=== PATIENT | female | born 2000 | race Hispanic/Latino ===

== ENCOUNTER 2020-03-24 00:34 | Emergency (ER) | payer OTHER ==
[~2020-03-24] VITALS: Ht 157.5 cm; Wt 59.9 kg
--- OUTSIDE RECORDS SUMMARY | 2020-03-24 00:36 | XMS REPORT | Clinical Summary ---
Author Author [facility] Address Unknown Phone Unavailable Care Team Providers Care Site Supervisor Name Role Phone Asked, No Pcp PCP Unavailable Allergies Comments Active Allergy Reactions Severity Noted Date Penicillins GI 04/19/2018 Intolerance Medications No known medications Active Problems Not on file Social History Date Tobacco Use Types Packs/Day Years Used Current Some Day Smoker Cigarettes Smokeless Tobacco: Never Used Drinks/Week oz/Week Comments Alcohol Use No Sex Assigned at Date Recorded Not on file Industry Job Start Date Occupation Not on file Not on file Not on file Travel End Travel History Travel Start No recent travel history available. Last Filed Vital Signs Not on file Plan of Treatment Not on file Results Not on fileafter 03/24/2019 Insurance Type Payer Benefit Subscriber ID Effective Phone Address Plan / Dates Group Exchange EDWARD EXCHANGE EDWARD xxxxxxxxxx [id number] [employer] resent E EXCHANGE [id number] Advance Directives For more information, please contact: [phone] Patient [facility] Explanation Type Date Recorded Advance Directives, 04/19/2018 2:23 AM Living Will and Medical Power of [facility] Nurse
--- OUTSIDE RECORDS SUMMARY | 2020-03-24 00:37 | XMS REPORT | Clinical Summary ---
Author Author [facility] Address Unknown Phone Unavailable Care Team Providers Care Paperboard Box Maker Name Role Phone Pcp, No PCP Unavailable Allergies Comments Active Allergy Reactions Severity Noted Date Penicillins 03/16/2020 Medications End Date Status Medication Sig Dispensed Refills Start Date Active valACYclovir (VALTREX) TAKE 1 TABLET 6 02 1000 MG tablet (1,000 MG 0 TOTAL) BY MOUTH DAILY FOR 5 DAYS USE FOR RECURRENT OUTBREAK. 03/16/2021 Active lidocaine (XYLOCAINE) 2 % Apply 30 mL 4 jelly topically as 0 needed Use quarter size amount to affect external vaginal tissue as necessary. 03/26/2020 Active ibuprofen (ADVIL,MOTRIN) Take 1 tablet 40 tablet 0 800 MG tablet (800 mg 0 total) by mouth every 6 (six) hours as needed for Pain for up to 10 days. 03/29/2019 acetaminophen-codeine Take 1-2 20 tablet 0 (TYLENOL #3) 300-30 mg tablets by 9 per tablet mouth every 6 (six) hours as needed for Pain for up to 10 days. Max Daily Amount: 8 tablets 03/26/2019 ondansetron (ZOFRAN-ODT) Take 1 tablet 20 tablet 0 8 MG disintegrating (8 mg total) 9 tablet by mouth 3 (three) times daily as needed for Nausea for up to 7 days. 09/15/2019 sulfamethoxazole-trimetho Take 1 tablet 14 tablet 0 prim (BACTRIM DS) 800-160 (160 mg of 9 mg per tablet trimethoprim total) by mouth 2 (two) times daily for 7 days. 09/08/2019 fluconazole (DIFLUCAN) Take 1 tablet 1 tablet 1 1 150 MG tablet (150 mg 9 total) by mouth once for 1 dose. 10/05/2019 Discontinued clobetasol (TEMOVATE) Apply 30 g 2 08/12 0.05 % ointment topically 2 9 (two) times daily Apply quarter size amount to affected external vaginal tissue. 09/15/2019 fluconazole (DIFLUCAN) Take 1 tablet 5 tablet 0 1 150 MG tablet (150 mg 9 total) by mouth daily for 5 days. 10/15/2019 valACYclovir (VALTREX) Take 1 tablet 20 tablet 0 1 1000 MG tablet (1,000 mg 9 total) by mouth every 12 (twelve) hours for 10 days. 03/16/2020 Discontinued lidocaine (XYLOCAINE) 2 % Apply 30 mL 4 jelly topically as 9 needed Use quarter size amount to affect external vaginal tissue as necessary. 10/25/2019 valACYclovir (VALTREX) Take 1 tablet 5 tablet 6 1 1000 MG tablet (1,000 mg 9 total) by mouth daily for 5 days Use for recurrent outbreak. Active Problems Not on file Encounters Care Team Description Date Type Specialty Mauricio Carpenter MD Recurrent HSV (herpes simplex virus) (Pr imary Dx); Screening examination for STD (sexually transmitted disease) 03/16/2020 Office Visit Obstetrics and Gyne Mauricio Ramon MD Medication Management 03/16/2020 Telephone Obstetrics and Gyne cology 03/16/2020 Travel Mauricio Carpenter MD Advice Only 03/15/2020 Telephone Obstetrics kinsey GynMauricio Arredondo MD Amenorrhea (Primary Dx) 10/20/2019 Office Visit Mauricio Sen MD 10/06/2019 Orders Only Cecilio and Mauricio Palmer MD Labs Only 10/06/2019 Telephone Mauricio Sen MD Dysuria (Primary Dx); Screening for STD (sexually transmitted disease); History of cocaine use; Yeast infection 10/05/2019 Office Visit Obstetrics and Gyne cology Mauricio Carpenter MD Advice Only 10/05/2019 Telephone Obstetrics and Gyne cology Mauricio Carpenter MD Pelvic pain 09/16/2019 Hospital Encounter Mauricio Carpenter MD 09/10/2019 Orders Only Obstetrics and Gyne cology Mauricio Carpenter MD Lichen simplex chronicus (Primary Dx); Pelvic pain; Acute vaginitis; Screen for STD (sexually transmitted disease) 09/08/2019 Office Visit Obstetrics and Gyne cology Mauricio Carpenter MD referral 09/08/2019 Telephone Obstetrics and Gyne cology after 03/24/2019 Social History Date Tobacco Use Types Packs/Day Years Used Never Smoker Smokeless Tobacco: Never Used Alcohol Use Drinks/Week oz/Week Comments No Alcohol Habits Answer Date Recorded How often do you have a drink containing alcohol? Never 03/19/2019 How many drinks containing alcohol do you have on No t asked a typical day when you are drinking? How often do you have six or more drinks on one Not asked occasion? Sex Assigned at Date Recorded Not on file Industry Job Start Date Occupation Not on file Not on file Not on file Travel End Travel History Travel Start No recent travel history available. Last Filed Vital Signs Time Taken Vital Sign Reading 03/16/2020 8:59 AM CDT Blood Pressure 118/78 03/16/2020 8:59 AM CDT Pulse 67 03/16/2020 8:59 AM CDT Temperature 36.5 C (97.7 F) - Respiratory Rate - - Oxygen Saturation - - Inhaled Oxygen - Concentration 03/16/2020 8:59 AM CDT Weight 60.3 kg (133 lb) 03/16/2020 8:59 AM CDT Height 160 cm (5' 3") 03/16/2020 8:59 AM CDT Body Mass Index 23.56 Plan of Treatment Care Team Description Date Type Specialty Mauricio Carpenter MD [address] [place], [place] [address]y [address] [place] [address] [phone] 04/20/2020 Office Visit Obstetrics and Gyne cology Health Maintenance Due Date Last Done Comments CERVICAL CANCER SCREENING 2019 PAP ONLY (Age 21-65) INFLUENZA VACCINE (Season 07/12/2020 Ended) Procedures Comments Procedure Name Priority Date/Time Associated Diag nosis POCT , URINE Routine 10/20/2019 Amenorrh ea 4:07 PM ICE GRINDER CHLAMYDIA/GC KEENAN, Routine 10/06/2019 CONFIRMATION 4:05 PM [facility] HIV-1 ANTIGEN WITH Routine 10/06/2019 History of cocaine use HIV-1/2 ANTIBODY 2:41 PM [facility]ER Yeast infection MICROSCOPIC EXAMINATION Routine 10/05/2019 4:29 PM [facility] URINE CULTURE, ROUTINE AP Routine 10/05/2019 Dysuria 4:29 PM [facility] URINALYSIS WITH Routine 10/05/2019 MICROSCOPIC IF INDICATED 4:29 PM [facility]ER HSV TYPES 1 & 2, KEENAN Routine 10/05/2019 4:27 PM [facility]ER NUSWAB BV AND MICHELLE\\, AP Routine 10/05/2019 Screen ing for STD KEENAN 4:27 PM [facility]ER (sexually transmitt ed disease) POCT URINALYSIS DIPSTICK Routine 10/05/2019 Dysur ia 2:16 PM [facility]ER US PELVIS WITH ENDOVAG Routine 09/16/2019 WITH DOPPLER 4:29 PM [facility] MICROSCOPIC EXAMINATION Routine 09/08/2019 1:51 PM CDT URINE CULTURE, ROUTINE AP Routine 09/08/2019 Pelvic pain 1:51 PM CDT URINALYSIS WITH Routine 09/08/2019 MICROSCOPIC IF INDICATED 1:51 PM CDT POCT URINALYSIS DIPSTICK Routine 09/08/2019 Pelvi c pain 1:38 PM CDT NUSWAB BV AND MICHELLE\\, AP Routine 09/08/2019 Acute vaginitis KEENAN 1:00 PM CDT Screen for STD (sex ually transmitted disease) after 03/24/2019 Results * POCT , urine (10/20/2019 4:07 PM [facility]) Test Urine, POC Negative Control line present?, Yes POC Background clear?, POC Yes UPT Cassette Lot #, POC [id number] UPT Cassette Expiration 2020-04-10 Date, POC Specimen Narrative Performed At This result has an attachment that is n ot available. * Chlamydia/GC KEENAN, Confirmation (10/06/2019 4:05 PM [facility]ER) Chlamydia trachomatis, Negative Negative [facility] 1 KEENAN Neisseria gonorrhoeae, Negative Negative [facility] 1 KEENAN Specimen Narrative Performed At [facility]formed at: [facility] [address] [place] [address] Corrective Therapist: Hema Ignacio MD, Phone :[phone] Performing Organization Address [facility] Ph one Number [facility] * HIV-1 Antigen with HIV-1/2 Antibody (10/06/2019 2:41 PM [facility]ER) HIV Screen 4th Generation Non Reactive Non Reacti [facility] 1 wRfx Specimen Blood Narrative Performed At Performed at: [facility] [place] [facility] [address] [place] [address] Corrective Therapist: Shaka Taveras MD, Phone: [phone] Performing Organization Address [facility] Ph one Number [facility] * Urinalysis with Microscopic If Indicated (10/05/2019 4:29 PM [facility]) Only the most recent of 2 results within the time period is included. Specific Bath, UA 1.025 1.005 - 1.03 [facility] 1 pH, UA 5.5 5.0 - 7.5 [facility] 1 Color, UA Yellow Yellow [facility] 1 Appearance Cloudy (A) Clear [facility] 1 WBC Esterase Trace (A) Negative [facility] 1 Protein, UA 1+ (A) Negative/T [facility] 1 Glucose, Urine Negative Negative [facility] 1 Ketones, UA Negative Negative [facility] 1 Blood, UA Negative Negative [facility] 1 Bilirubin, UA Negative Negative [facility] 1 Urobilinogen,Semi-Qn 0.2 0.2 - 1.0 mg/dL [facility] 1 Nitrite, UA Negative Negative [facility] 1 Microscopic Examination See below:Comment: Microscopic [facility] was indicated and was performed. Specimen Narrative Performed At Performed at:[address] [place] [address] Corrective Therapist: Shaka Taveras MD, Phone: [phone] Performing Organization Address [facility] one Number [facility] * MICROSCOPIC EXAMINATION (10/05/2019 4:29 PM [facility] GR[facility]ER) Only the most recent of 2 results within the time period is included. WBC 6-10 (A) 0 - 5 /hpf [facility] 1 RBC 3-10 (A) 0 - 2 /hpf [facility] 1 Epithelial Cells (non >10 (A) 0 - 10 /hpf [facility] 1 renal) Mucus Threads Present Not Estab. [facility] 1 Bacteria Few None seen/ [facility] 1 Specimen Narrative Performed At Performed at:[address] [place] [address] [address] Corrective Therapist: Shaka Taveras MD, Phone: [phone] Performing Organization Address [facility] one Number [facility] * URINE CULTURE, ROUTINE ([facility] Only) (10/05/2019 4:29 PM ICE GRINDER) Only the most recent of 2 results within the time period is included. Urine Culture, Routine Final report [facility] 1 Result 1 No growth [facility] 1 Specimen Vaginal Swab Narrative Performed At Performed at: [facility] [address] Corrective Therapist: Shaka Taveras MD, Phone: [phone] Performing Organization Address [facility] one Number [facility] * HSV TYPES 1 & 2, KEENAN (10/05/2019 4:27 PM ICE GRINDER) HSV 1 KEENAN Positive (A) Negative [facility] 1 HSV 2 KEENAN Negative Negative [facility] 1 Specimen Narrative Performed At Performed at:[address] [place] [address] Corrective Therapist: Hema Ignacio MD, Phone :[phone] Performing Organization Address [facility] one Number [facility] * NUSWAB BV AND MICHELLE\\, KEENAN (10/05/2019 4:27 PM ICE GRINDER) Only the most recent of 2 results within the time period is included. Atopobium vaginae Low - 0 Score [facility] BVAB 2 Low - 0 Score [facility] Megasphaera 1 Low - 0 Score [facility] Comment: Calculate total score by adding the 3 individual bacterial vaginosis (BV) marker scores together.Total score is interpreted as follows: Total score 0-1: Indicates the absence of BV. Total score 2: Indeterminate for BV. Additional clinical data should be evaluated to establish a diagnosis. Total score 3-6: Indicates the presence of BV. This test was developed and its performance characteristics determined by [facility].It has not been cleared or approved by the Food and Drug Administration.The FDA has determined that such clearance or approval is not necessary. Michelle albicans, KEENAN Negative Negative [facility] 1 Michelle glabrata, KEENAN Negative Negative [facility] Comment: This test was developed and its performance characteristics determined by [facility].It has not been cleared or approved by the Food and Drug Administration.The FDA has determined that such clearance or approval is not necessary. Specimen Vaginal Swab Narrative Performed At Performed at:[address] [place] [address] Corrective Therapist: Hema Ignacio MD, Phone :[phone] Performing Organization Address [facility] one Number [facility] * POCT urinalysis dipstick (10/05/2019 2:16 PM ICE GRINDER) Only the most recent of 2 results within the time period is included. Glucose Urine, POC Negative Negative Bilirubin Urine, POC Negative Negative Ketones Urine, POC Negative Negative Specific Bath Urine, 1.025 SG Ratio 1.005 SG Ratio , 1.010 SG POC Ratio, 1.015 SG Ratio, 1.020 SG Ratio, 1.025 SG Ratio, 1.030 SG Ratio Blood Urine, POC Trace (A) Negative pH Urine, POC 6.0 pH units 5.0 pH units, 5.5 p H units, 6.0 pH units, 6.5 pH units, 7.0 pH units, 7.5 pH units, 8.0 pH units Protein Urine, POC 30 mg/dl (A) Negative Urobilinogen Urine, POC 0.2 mg/dL 0.2 mg/dL, 1 m g/dL Nitrite Urine, POC Negative Negative Leukocyte Esterase Urine, Small (A) Negative POC Specimen * US pelvis with endovag with doppler (09/16/2019 4:29 PM ICE GRINDER) Specimen Narrative Performed At FINAL REPORT [facility] Pelvic ultrasound with Doppler, 09/16/20 19. History: Pelvic pain. Comparison: None available. Discussion: Transabdominal evaluation o f the pelvis was performed in the transverse and longitudinal planes. Transvaginal sonographic evaluation was also performed for impro rosemary visualization of the adnexa. Color Doppler and spectral wave form analysis was performed of the adnexa bilaterally The uterus is normal in size measuring 5.7 x 2.0 x 2.9 cm. The endometrial stripe is within normal hinton its at 3 mm. The right ovary measures 4.2 x 1.9 x 3. 4 cm and contains a 1.8 cm hemorrhagic follicle. The left ovary me asures 3.8 x 2.0 x 2.6 cm. Normal arterial and venous flow is pres ent bilaterally. There is no evidence of an adnexal mass. There is n o evidence of free fluid. IMPRESSION: Normal pelvic ultrasound. Signed: Onur Webber MD Report Verified Date/Time: 9 16:32:01 Reading Location: [facility] Radiology [facility] Room Procedure Note Interface, External Ris In - 09/16/2019 4:34 PM [facility]ER FINAL REPORT Pelvic ultrasound with Doppler, 09/16/2019. History: Pelvic pain. Comparison: None available. Discussion: Transabdominal evaluation of the pelvis was performed in the transverse and longitudinal planes. Transvaginal sonographic evaluation was also performed for improved visualization of the adnexa. Color Doppler and spectral waveform analysis was performed of the adnexa bilaterally The uterus is normal in size measuring 5.7 x 2.0 x 2.9 cm. The endometrial stripe is within normal limits at 3 mm. The right ovary measures 4.2 x 1.9 x 3.4 cm and contains a 1.8 cm hemorrhagic follicle. The left ovary measures 3.8 x 2.0 x 2.6 cm. Normal arterial and venous flow is present bilaterally. There is no evidence of an adnexal mass. There is no evidence of free fluid. IMPRESSION: Normal pelvic ultrasound. Signed: Onur Webber MD Report Verified Date/Time: 09/16/2019 16:32:01 Reading Location: [facility] Radiology Reading Room Performing Organization Address City/State/Zipcode one Number GE RIS after 03/24/2019 Insurance Payer Benefit Subscriber ID Type Phone Address Plan / Group DENILSON OREILLY xxxxxxxxxxx [place] [phone]
--- OUTSIDE RECORDS SUMMARY | 2020-03-24 00:37 | XMS REPORT ---
Author Author [facility] t Organization [facility] Address [address] [place] [address] Phone Unavailable Care Team Providers Care Erco Machine Operator Name Role Phone Asked, Pcp No PCP Unavailable JOSEFINA VALDOVINOS Attphys Unavailable YULIANA ALEXANDER Attphys Unavailable Payers Payer Name Policy Type Policy Number Effective Date Expiration Date S ource Problems This patient has no known problems. Allergies, Adverse Reactions, Alerts Allergy Name Allergy Type Status Severity Reaction(s) Onset Date Inacti ve Date Treating Clinician Comments Source Cephalosporins DA Active U 2019-08-20 00:00:[facility] Penicillins Propensity to adverse reactions to drug Active GI Intolerance 2018-04-19 00:00:00 [facility] Social History Social Habit Start Date Stop Date Quantity Comments Source History of tobacco use Cigarette Smoker [place] [facility] Sex Assigned At [place] [facility] [facility] Alcohol intake 2018-04-19 00:00:00 2018-04-19 00:00:00 Current non-drinker of alcohol (finding) [place] [facility] Smoking Status Start Date Stop Date Source Current some day smoker 2018-04-19 00:00:00 [place] [facility] Medications This patient has no known medications. Procedures This patient has no known procedures. Results Test Description Test Time Test Comments Results Result Comments Source U/S, PELVIS, WITH ENDOVAG AND DOPPLER 2019-09-16 16:32:00 Re ason for Exam:- >Pelvic pain FINAL REPORT Pel osbaldo ultrasound with Doppler, 09/16/2019. History: Pelvic pain. [...] IMPRESSION: Normal pelvic ultrasound. Signed: Onur Webber Verified Date/Time: 09/16/2019 16:32:01 Reading Location: [facility] [address] Radiology Reading Room REHENSIVE METABOLIC PANEL 2019-08-20 14:53:00 Test Item SODIUM (test code = NA) 139 MMOL/L 137-145 N POTASSIUM (test code = K) 4.4 MMOL/L 3.5-5.1 N CHLORIDE (test code = CL) 104 MMOL/L 98-107 N CARBON DIOXIDE (test code = CO2) 26 MMOL/L 22-30 N ANION GAP (test code = GAP) 13 MMOL/L 14-24 L GLUCOSE (test code = GLU) 71 MG/DL 74-106 L BLOOD UREA NITROGEN (test code = BUN) 14 MG/DL 7-17 N GLOMERULAR FILTRATION RATE (test code = GFR) > 60 Reporting units: ml/min/1.73 m2 (Modified MDRD Formula)Reference Range: > or = 60 ml/min/1.73 m2 CREATININE (test code = CREAT) 0.50 MG/DL 0.52-1.04 L TOTAL PROTEIN (test code = PROT) 9.1 G/DL 6.3-8.2 H ALBUMIN (test code = ALB) 4.9 G/DL 3.5-5.0 N CALCIUM (test code = CA) 9.5 MG/DL 8.4-10.2 N BILIRUBIN TOTAL (test code = BILT) 1.1 MG/DL 0.2-1.3 N SGOT/AST (test code = AST) 50 UNITS/L 14-36 H SGPT/ALT (test code = ALT) < 6 UNITS/L 9-52 L ALKALINE PHOSPHATASE (test code = ALKP) 73 UNITS/L 38-126 N [id number] 14:53:00* Test Item Value Reference Range Interpretation Comments LIPASE (test code = LIP) 94 UNITS/L 23-300 N HCG SERUM [id number] 13:12:00* Test Item Value Reference Range Interpretation Comments HCG SERUM QUAL (test code = HCGQL) NEGATIVE NEGATIVE A URINALYSIS [id number] 13:08:00* Test Item Value Reference Range Interpretation Comments UA COLOR (test code = COLU) YELLOW YELLOW UA APPEARANCE (test code = APPU) very cloudy CLEAR UA GLUCOSE DIPSTICK (test code = DGLUU) NORMAL MG/DL NORMAL UA BILIRUBIN DIPSTICK (test code = BILU) NEGATIVE MG/DL NEGATIVE UA KETONE DIPSTICK (test code = KETU) 5 MG/DL NEGATIVE UA SPECIFIC GRAVITY (test code = SGU) 1.025 1.003-1.030 N UA BLOOD DIPSTICK (test code = DEB) 25 John/mm3 NEGATIVE A UA PH DIPSTICK (test code = AUSTIN) 5.0 5.0-9.0 N UA PROTEIN DIPSTICK (test code = PROU) NEGATIVE MG/DL NEGATIVE UA UROBILINIOGEN DIPSTICK (test code = URO) NORMAL MG/DL NORMAL UA NITRITE DIPSTICK (test code = KAMALA) NEGATIVE NEGATIVE UA LEUKOCYTE ESTERASE DIPSTICK (test code = LEUU) 500 /mm3 NEGA TIVE A UA CULTURE NEEDED? (test code = UACULT) NO, WBC<10 Criteria Culture Chk SOURCE OF URINE: CLEAN CATCHUA [id number] 13:08:00* Test Item Value Reference Range Interpretation Comments UA RBC (test code = RBCU) 0-3 RBC/HPF 0-3 UA WBC (test code = XWBCU) 5-9 WBC/HPF 0-5 A UA EPITHELIAL CELLS (test code = EPIU) MANY EPI/HPF FEW UA BACTERIA (test code = XBACU) FEW NONE SOURCE OF URINE: CLEAN CATCHURINALYSIS [id number] 12:55:00* Test Item Value Reference Range Interpretation Comments UA COLOR (test code = COLU) YELLOW YELLOW UA APPEARANCE (test code = APPU) very cloudy CLEAR UA GLUCOSE DIPSTICK (test code = DGLUU) NORMAL MG/DL NORMAL UA BILIRUBIN DIPSTICK (test code = BILU) NEGATIVE MG/DL NEGATIVE UA KETONE DIPSTICK (test code = KETU) 5 MG/DL NEGATIVE UA SPECIFIC GRAVITY (test code = SGU) 1.025 1.003-1.030 N UA BLOOD DIPSTICK (test code = DEB) 25 John/mm3 NEGATIVE A UA PH DIPSTICK (test code = AUSTIN) 5.0 5.0-9.0 N UA PROTEIN DIPSTICK (test code = PROU) NEGATIVE MG/DL NEGATIVE UA UROBILINIOGEN DIPSTICK (test code = URO) NORMAL MG/DL NORMAL UA NITRITE DIPSTICK (test code = KAMALA) NEGATIVE NEGATIVE UA LEUKOCYTE ESTERASE DIPSTICK (test code = LEUU) 500 /mm3 NEGA TIVE A UA CULTURE NEEDED? (test code = UACULT) Criteria Culture Chk SOURCE OF URINE: CLEAN CATCHUA [id number] 12:55:00* Test Item Value Reference Range Interpretation Comments UA RBC (test code = RBCU) RBC/HPF 0-3 UA WBC (test code = XWBCU) WBC/HPF 0-5 UA EPITHELIAL CELLS (test code = EPIU) EPI/HPF FEW UA BACTERIA (test code = XBACU) NONE SOURCE OF URINE: CLEAN CATCHURINALYSIS [id number] 12:55:00* Test Item Value Reference Range Interpretation Comments UA COLOR (test code = COLU) YELLOW YELLOW UA APPEARANCE (test code = APPU) very cloudy CLEAR UA GLUCOSE DIPSTICK (test code = DGLUU) NORMAL MG/DL NORMAL UA BILIRUBIN DIPSTICK (test code = BILU) NEGATIVE MG/DL NEGATIVE UA KETONE DIPSTICK (test code = KETU) 5 MG/DL NEGATIVE UA SPECIFIC GRAVITY (test code = SGU) 1.025 1.003-1.030 N UA BLOOD DIPSTICK (test code = DEB) 25 John/mm3 NEGATIVE A UA PH DIPSTICK (test code = AUSTIN) 5.0 5.0-9.0 N UA PROTEIN DIPSTICK (test code = PROU) NEGATIVE MG/DL NEGATIVE UA UROBILINIOGEN DIPSTICK (test code = URO) NORMAL MG/DL NORMAL UA NITRITE DIPSTICK (test code = KAMALA) NEGATIVE NEGATIVE UA LEUKOCYTE ESTERASE DIPSTICK (test code = LEUU) 500 /mm3 NEGA TIVE A UA CULTURE NEEDED? (test code = UACULT) Criteria Culture Chk SOURCE OF URINE: CLEAN CATCHUA [id number] 12:55:00* Test Item Value Reference Range Interpretation Comments UA RBC (test code = RBCU) RBC/HPF 0-3 UA WBC (test code = XWBCU) WBC/HPF 0-5 UA EPITHELIAL CELLS (test code = EPIU) EPI/HPF FEW UA BACTERIA (test code = XBACU) NONE SOURCE OF URINE: CLEAN CATCHCBC W/AUTO [id number] 12:50:00* Test Item Value Reference Range Interpretation Comments WHITE BLOOD CELL (test code = WBC) 6.2 K/MM3 3.8-9.8 N RED BLOOD CELL (test code = RBC) 4.71 M/MM3 3.58-4.97 N HEMOGLOBIN (test code = HGB) 14.1 G/DL 11.2-14.9 N HEMATOCRIT (test code = HCT) 43.7 % 33.2-43.5 H MEAN CELL VOLUME (test code = MCV) 93 fL 80.7-99.1 N MEAN CELL HGB (test code = MCH) 29.9 pg 27.0-34.1 N MEAN CELL HGB CONCETRATION (test code = MCHC) 32.3 % 32.2-35. 7 N RED CELL DISTRIBUTION WIDTH (test code = RDW) 11.9 % 12.1-15. 2 L PLATELET COUNT (test code = PLT) 260 K/MM3 129-368 N MEAN PLATELET VOLUME (test code = MPV) 11.5 fl 7.4-10.4 H NEUTROPHIL % (test code = NT%) 44.5 % 43-75 N IMMATURE GRANULOCYTE % (test code = IG%) 0.2 % 0.0-2.0 N LYMPHOCYTE % (test code = LY%) 47.0 % 14-44 H MONOCYTE % (test code = MO%) 6.0 % 4-13 N EOSINOPHIL % (test code = EO%) 1.8 % 0-6 N BASOPHIL % (test code = BA%) 0.5 % 0-2 N NUCLEATED RBC % (test code = NRBC%) 0.0 % 0-1.0 N NEUTROPHIL # (test code = NT#) 2.74 K/mm3 2.0-7.6 N IMMATURE GRANULOCYTE # (test code = IG#) 0.01 x10 3/uL 0-0.03 N LYMPHOCYTE # (test code = LY#) 2.89 K/mm3 1.0-3.8 N MONOCYTE # (test code = MO#) 0.37 K/mm3 0.1-0.8 N EOSINOPHIL # (test code = EO#) 0.11 K/mm3 0.0-0.2 N BASOPHIL # (test code = BA#) 0.03 K/mm3 0.0-0.2 N NUCLEATED RBC # (test code = NRBC#) 0.00 K/mm3 0.0-0.1 N TROPONIN [id number] 20:52:00* Test Item Value Reference Range Interpretation Comments TROPONIN I (BEAKER) (test code = 397) < ng/mL 0.00-0.15 Troponin I (TnI) levels must be interpreted in the context of the presenting sym ptoms and the clinical findings. Elevated TnI levels indicate myocardial damage, but are not specific for ischemic heart disease. Elevated TnI levels are seen in patients with other cardiac conditions (including myocarditis and congestive h eart failure), and slight TnI elevations occur in patients with other conditions , including sepsis, renal failure, acidosis, acute neurological disease, and per sistent tachyarrhythmia.RAPID DRUG SCREEN, [id number] 20:41:00* Test Item Value Reference Range Interpretation Comments BARBITURATE URINE (BEAKER) (test code = 725) Negative Negative BENZODIAZEPINE SCREEN URINE (BEAKER) (test code = 726) Negative Negative COCAINE (METAB.) SCREEN (BEAKER) (test code = 1164) Positive Ne gative A METHADONE SCREEN (BEAKER) (test code = 1436) Negative Negative OPIATE SCREEN URINE (BEAKER) (test code = 734) Negative Negativ e CANNABINOID SCREEN URINE (BEAKER) (test code = 727) Positive Ne gative A AMPH/METHAMPH SCREEN (BEAKER) (test code = 1438) Negative Negat jose PHENCYCLIDINE SCREEN URINE (BEAKER) (test code = 608) Negative Negative DRUG CUTOFF CONC.Cocaine 300 ng/mL Cannabinoid 50 ng/mLBenzodiazepine 200 ng/mLBarbiturate 200 ng/mLPh encyclidine 25 ng/mLOpiate 300 ng/mLMethadone 300 ng/mLAmphetamine/ 1000 ng/mL MethamphetamineThis assay provides an unconfirmed qualitative test result for the clinical management of patients in emergency situations. Chain of custody not maintained. Some rbhd-mkk-wrpxsap me dications, as well as adulterants, may cause inaccurate results. Clinical correl ation should be applied. A more comprehensive drug screen or confirmation of a d etected drug may be performed upon request.CT, [id number] 14:21:00Reason for exam:->upper abd pain, nauseaIs the patient ?->NoWhat is the patient's sedation requirement?->No SedationFINAL REPORT TECHNIQUE: CT of the abdomen and pelvis WITH intravenous contrast and WITHOUT oral contrast. Dose modulation, iterative reconstruction, and/or weight-based adjustment of the mA/kV was utilized to reduce the radiation dose to as low as reasonably achievable. INDICATION: 18-year-old woman with upper abdominal pain and nausea. COMPARISON: None. FINDINGS: LOWER THORAX: Unremarkable. HEPATOBILIARY: No focal hepatic lesions. Gallbladder is unremarkable. No biliary ductal dilatation.SPLEEN: No splenomegaly.PANCREAS: No focal masses or ductal dilatation. ADRENALS: No adrenal nodules.KIDNEYS/URETERS: No hydronephrosis, stones, or solid mass lesions.PELVIC ORGANS/BLADDER: 3.9 x 3.2 x 2.4 cm structure in the right ovary contains calcifications as well as fat. Uterus and left ovary are grossly unremarkable. Bladder is unremarkable. PERITONEUM/ RETROPERITONEUM: Trace free fluid in the pelvis, likely physiologic. No free air .LYMPH NODES: No lymphadenopathy.VESSELS: Unremarkable. GI TRACT: No distention or wall thickening. Normal appendix. BONES AND SOFT TISSUES: Unremarkable. IMPR ESSION:No acute abnormalities in the abdomen or pelvis. 3.9 cm right ovarian nikolay moid. Signed: Laisha Copeland MDReport Verified Date/Time: 03/19/2019 14:21:09 Reading Location: [address] Ultrasound Reading Room ONIN [id number] 13:24:00* Test Item Value Reference Range Interpretation Comments TROPONIN I (BEAKER) (test code = 397) < ng/mL 0.00-0.15 Troponin I (TnI) levels must be interpreted in the context of the presenting sym ptoms and the clinical findings. Elevated TnI levels indicate myocardial damage, but are not specific for ischemic heart disease. Elevated TnI levels are seen in patients with other cardiac conditions (including myocarditis and congestive h eart failure), and slight TnI elevations occur in patients with other conditions , including sepsis, renal failure, acidosis, acute neurological disease, and per sistent tachyarrhythmia.[id number] 13:16:00* Test Item Value Reference Range Interpretation Comments LIPASE (BEAKER) (test code = 749) 20 U/L 6-51 COMPREHENSIVE METABOLIC [id number] 13:15:00* Test Item Value Reference Range Interpretation Comments TOTAL PROTEIN (BEAKER) (test code = 770) 8.0 gm/dL 6.0-8.5 ALBUMIN (BEAKER) (test code = 1145) 4.5 g/dL 3.5-5.0 ALKALINE PHOSPHATASE (BEAKER) (test code = 346) 61 U/L 30-115 BILIRUBIN TOTAL (BEAKER) (test code = 377) 0.7 mg/dL 0.1-1.2 SODIUM (BEAKER) (test code = 381) 137 meq/L 135-148 POTASSIUM (BEAKER) (test code = 379) 3.9 meq/L 3.6-5.5 CHLORIDE (BEAKER) (test code = 382) 105 meq/L 98-106 CO2 (BEAKER) (test code = 355) 21 meq/L 20-29 BLOOD UREA NITROGEN (BEAKER) (test code = 354) 14 mg/dL 10-26 CREATININE (BEAKER) (test code = 358) 0.83 mg/dL 0.50-1.20 GLUCOSE RANDOM (BEAKER) (test code = 652) 79 mg/dL 70-110 CALCIUM (BEAKER) (test code = 697) 9.5 mg/dL 8.5-10.5 AST (SGOT) (BEAKER) (test code = 353) 29 U/L 5-40 ALT (SGPT) (BEAKER) (test code = 347) 18 U/L 5-50 EGFR (BEAKER) (test code = 1092) 88 mL/min/1.73 sq m ESTIMATED GFR IS NOT ACCURATE CREATININE CLEARANCE IN PREDICTING GLOMERULAR FILTRATION RATE. ESTIMATED GFR IS NOT APPLICABLE FOR DIALYSIS PATIENTS. CBC W/PLT COUNT & AUTO [id number] 12:53:00* Test Item Value Reference Range Interpretation Comments WHITE BLOOD CELL COUNT (BEAKER) (test code = 775) 2.9 K/ L 4.0- 10.0 L RED BLOOD CELL COUNT (BEAKER) (test code = 761) 4.84 M/ L 4.00-5 .00 HEMOGLOBIN (BEAKER) (test code = 410) 13.6 GM/DL 12.0-15.5 HEMATOCRIT (BEAKER) (test code = 411) 42.5 % 36.0-46.0 MEAN CORPUSCULAR VOLUME (BEAKER) (test code = 753) 87.8 fL 82. 0-99.0 MEAN CORPUSCULAR HEMOGLOBIN (BEAKER) (test code = 751) 28.1 pg 27.0-33.0 MEAN CORPUSCULAR HEMOGLOBIN CONC (BEAKER) (test code = 752) 32.0 GM/DL 32.0-36.0 RED CELL DISTRIBUTION WIDTH (BEAKER) (test code = 412) 13.0 % 12.0-15.0 PLATELET COUNT (BEAKER) (test code = 756) 198 K/CU MM 150-430 MEAN PLATELET VOLUME (BEAKER) (test code = 754) 9.7 fL 6.0-11 .5 NUCLEATED RED BLOOD CELLS (BEAKER) (test code = 413) 0 /100 WBC 0 -0 NEUTROPHILS RELATIVE PERCENT (BEAKER) (test code = 429) 60 % LYMPHOCYTES RELATIVE PERCENT (BEAKER) (test code = 430) 22 % MONOCYTES RELATIVE PERCENT (BEAKER) (test code = 431) 16 % EOSINOPHILS RELATIVE PERCENT (BEAKER) (test code = 432) 1 % BASOPHILS RELATIVE PERCENT (BEAKER) (test code = 437) 0 % NEUTROPHILS ABSOLUTE COUNT (BEAKER) (test code = 670) 1.75 K/ L 1.80-8.00 L LYMPHOCYTES ABSOLUTE COUNT (BEAKER) (test code = 414) 0.65 K/ L 1.48-4.50 L MONOCYTES ABSOLUTE COUNT (BEAKER) (test code = 415) 0.46 K/ L 0. 00-1.30 EOSINOPHILS ABSOLUTE COUNT (BEAKER) (test code = 416) 0.03 K/ L 0.00-0.50 BASOPHILS ABSOLUTE COUNT (BEAKER) (test code = 417) 0.01 K/ L 0. 00-0.20 IMMATURE GRANULOCYTES-RELATIVE PERCENT (BEAKER) (test code = 2801) 0 % 0-0 RAD, CHEST, 2 [id number] 12:52:00Reason for exam:->chest painReason for exam:->1 dayFINAL REPORT Chest, PA and lateral. History: Chest pain. Comparison: None available. Discussion: The cardiomediastinal silhouette and pulmonary vasculature are within normal limits. The lungs are clear without evidence of consolidation or effusion. There are no acute osseous abnormalities. The soft tissues are unremarkable. IMPRESSION: No acute cardiopulmonary abnormality. Signed: Bryan Bell MDReport Verified Date/Time: 03/19/2019 12:52:28 Reading Location: [address] Radiology Reading Room ALYSIS W/ [id number] 11:00:00* Test Item Value Reference Range Interpretation Comments COLOR (BEAKER) (test code = 470) Yellow CLARITY (BEAKER) (test code = 469) Slightly Cloudy SPECIFIC GRAVITY UA (BEAKER) (test code = 468) 1.010 1.001-1 .035 PH UA (BEAKER) (test code = 467) 6.5 5.0-8.0 PROTEIN UA (BEAKER) (test code = 464) Negative Negative GLUCOSE UA (BEAKER) (test code = 365) Negative Negative KETONES UA (BEAKER) (test code = 371) Negative Negative BILIRUBIN UA (BEAKER) (test code = 462) Negative Negative BLOOD UA (BEAKER) (test code = 461) Negative Negative NITRITE UA (BEAKER) (test code = 465) Negative Negative LEUKOCYTE ESTERASE UA (BEAKER) (test code = 466) Negative Negat jose UROBILINOGEN UA (BEAKER) (test code = 463) 0.2 mg/dL 0.2-1.0 BACTERIA (BEAKER) (test code = 517) Moderate RBC UA-MANUAL (BEAKER) (test code = 1659) <5 /HPF WBC UA-MANUAL (BEAKER) (test code = 1661) <5 /HPF SQUAMOUS EPITHELIAL MANUAL (BEAKER) (test code = 1663) 5-10 /HPF SOURCE(BEAKER) (test code = 2795) SCREEN, [id number] 10:55:00* Test Item Value Reference Range Interpretation Comments TEST URINE (BEAKER) (test code = 583) Negative
[2020-03-24] MEDS ORDERED: LORAZEPAM 0.5 MG TAB ONE (00:56)
--- NOTE | 2020-03-24 00:56 | Emergency Department Note ---
History of Present Illnes History of Present Illness Chief Complaint: General Medicine Complaints History of Present Illness This is a 19 year old female with anxiety attack. . Historian: Patient Arrival Mode: Car Onset (how long ago): hour(s) (1) Location: all over Quality: anxious Radiation: non-radiation Severity: mild Onset quality: sudden Duration (how long): hour(s) Progression: waxing and waning Chronicity: recurrent Relieving factors: none Exacerbating factors: none Associated symptoms: denies other symptoms Treatments prior to arrival: none Past Medical/Family History Physician Review I have reviewed the patient's past medical and family history. Any updates have been documented here. 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 Physical Exam Related Data Triage Vital Signs Vital Signs Date Time Temp Pulse Resp B/P (MAP) Pulse Ox O2 Delivery O2 Flow Rate FiO2 03/24/20 00:37 98.1 78 18 123/60 98 Vital signs reviewed: Yes Physical Exam CONSTITUTIONAL Constitutional: well-developed, well-nourished HENT HENT: normocephalic, atraumatic, oropharynx clear/moist, nose normal HENT - Ear: left ext ear normal, right ext ear normal EYES Eyes: PERRL, conjunctivae normal NECK Neck: ROM normal PULMONARY Pulmonary: effort normal, breath sounds normal CARDIOVASCULAR Cardiovascular: regular rhythm, heart sounds normal, capillary refill normal, normal rate GASTROINTESTINAL Abdominal: soft, nontender, bowel sounds normal GENITOURINARY Genitourinary: exam deferred SKIN Skin: warm, dry MUSCULOSKELETAL Musculoskeletal: ROM normal NEUROLOGICAL Neurological: alert, oriented x 3, no gross motor or sensory deficits PSYCHOLOGICAL Psychiatric/behavioral: mood/affect normal, judgement normal Critical Care Time Subsequent provider I assumed direction of critical care for this patient from another provider of my specialty. Assessment & Plan Assessment & Plan Problems: (1) Anxiety attack Reassessment Reassessment feeling better Depart Disposition: HOME, SELF-CARE Last Vital Signs Date Time Temp Pulse Resp B/P (MAP) Pulse Ox O2 Delivery O2 Flow Rate FiO2 03/24/20 00:37 98.1 78 18 123/60 98 Medications in the ED Lorazepam 1 mg ONCE ONCE PO ; Start 03/24/20 at 01:00; Stop 03/24/20 at 01:01; Status UNV KARTIK TREJO MD March 24, 2020 00:56
[2020-03-24] MEDS ORDERED: XANAX0.5 MG PO (00:57)
[2020-03-24] MEDS ORDERED: LORAZEPAM 1 MG TAB PO ONE (01:00)
[2020-03-24 01:12] VITALS: BP 122/60
== END 2020-03-24 01:12 | disposition home or self-care (01) ==
LOC: FSED 00:34
DX: F41.9 Anxiety disorder, unspecified (principal)
CPT/HCPCS: 99283